=== PATIENT | female | born 1930 | race Caucasian/White ===

== ENCOUNTER 2018-04-13 08:51 | Inpatient (IN) ==
[2018-04-13] MEDS ORDERED: SODIUM CHLORIDE 0.9% 500 ML IV STA (09:22)
[2018-04-13 09:33] LABS: Basophils % 0.2 % (0.0-0.8); Eosinophils # 0.3 10*3/uL (0.0-0.87); Hematocrit 43.9 VOL% (35.7-47.0); Hemoglobin 13.4 GM/DL (12.0-16.0); Immature Granulocytes % 0.2 %; Immature Granulocytes Absolute 0.02 #; Lymphocytes # 2.1 10*3/uL (1.4-4.0); Lymphocytes % 24.3 % (21.3-54.2); Mean Corpuscular HGB Conc 30.5 GM/DL (32-36); Mean Corpuscular Hemoglobin 29 PG (27-34); Monocytes # 0.7 10*3/uL (0.11-0.8); Monocytes % 8.1 % (1.7-12.7); Neutrophils # 5.4 10*3/uL (1.4-7.4); Neutrophils % 63.2 % (38.7-73.9); Platelet Count 172 T/CUMM (130-400); Red Blood Count 4.62 MC/CUMM (3.8-5.5); Red Cell Distribution Width 13.9 % (9.3-17.3); White Blood Count 8.6 T/CUMM (4-12)
[2018-04-13 09:41] LABS: INR 0.9; Partial Thromboplastin Time 27.3 SECS (0-40)
[2018-04-13 10:27] LABS: Alanine Aminotransferase < 9 U/L (13-56); Albumin 2.6 G/DL (3.4-5.0); Alkaline Phosphatase 82 U/L (45-117); Aspartate Amino Transferase 14 U/L (0-37); Bilirubin,Total < 0.39 MG/DL (0.2-1.0); Blood Urea Nitrogen 31 MG/DL (7-18); Calcium 8.7 MG/DL (8.5-10.1); Glucose 84 MG/DL (74-106); Osmolality,Calculated 286.3 MOS/KG (273-304); Potassium 4.6 MMOL/L (3.5-5.1); Sodium 141 MMOL/L (136-145); Total Protein 6.5 G/DL (6.4-8.3); Troponin I 0.017 NG/ML (0.00-0.045)
[2018-04-13] MEDS ORDERED: LEVOFLOXACIN INJ 750 MG in PREMIX 1 EACH IV STA (10:40)
[2018-04-13] MEDS ORDERED: ALBUTEROL/IPRATROPIUM 3 ML NEB RESP TX STA (10:40)
[2018-04-13 10:41] LABS: Apearance,Urine CLEAR (Clear); Bacteria,Urine Occasional /HPF (Few); Bilirubin,Urine Negative (Negative); Blood, Urine Negative (Negative); Glucose,Urine (UA) Negative (Negative); Ketones,Urine 5 mg/dL (Negative); Mucus,Urine Occasional /LPF (Occasional); Nitrite,Urine Positive (Negative); Protein,Urine Negative; RBC,Urine 2 /HPF (0-4); Urine Color Yellow (Yellow); Urine Specific Gravity 1.023 (1.001-1.035); WBC,Urine 44 /HPF (0-6)
[2018-04-13] MEDS ORDERED: ONDANSETRON 4 MG/2 ML VIAL IV PRN (10:55)
[2018-04-13] MEDS ORDERED: MEPERIDINE 25 MG/1 ML VIAL IV STA (12:28)
[2018-04-13] MEDS ORDERED: MEPERIDINE 25 MG/1 ML VIAL ONE (12:29)
[2018-04-13] MEDS: ALBUTEROL/IPRATROPIUM 3 ML NEB RESP TX SCH ×2 (13:52→20:38)
[2018-04-13] MEDS ORDERED: MENTHOL TOP PRN (13:59)
[2018-04-13] MEDS: DEXTROSE 5% NACL 0.9% 1,000 ML IV SCH (14:08)
[2018-04-13] MEDS ORDERED: CARBIDOPA/LEVODOPA 25-100 MG TABLET PO SCH (15:00)
[2018-04-13] MEDS: CARBIDOPA/LEVODOPA 25-100 MG TABLET PO SCH ×3 (15:38→22:13)
[2018-04-13] MEDS: GABAPENTIN 100 MG CAPSULE PO SCH ×3 (15:38→22:13)
[2018-04-13] MEDS ORDERED: DULoxetine 30 MG CAPSULE PO SCH (21:00)
[2018-04-13] MEDS ORDERED: SIMVASTATIN 20 MG TABLET PO SCH (21:00)
[2018-04-13] MEDS: SIMVASTATIN 20 MG TABLET PO SCH (22:11)
[2018-04-13] MEDS: MEGESTROL 400 MG/10 ML UDCUP PO SCH (22:11)
[2018-04-13] MEDS: DULoxetine 30 MG CAPSULE PO SCH (22:12)
[2018-04-13] MEDS: DIVALPROEX 250 MG TABLET PO SCH (22:12)
[2018-04-13] MEDS: LACOSAMIDE 50 MG TABLET PO SCH (22:12)
[2018-04-13] MEDS: METOPROLOL TARTRATE 25 MG TABLET PO SCH (22:12)
[2018-04-13] MEDS: clonazePAM 0.5 MG TABLET PO SCH (22:13)
[2018-04-13] MEDS: DONEPEZIL 10 MG TABLET PO SCH (22:13)
[2018-04-13] MEDS: LATANOPROST 0.005% OPH SOLN 2.5 ML BOTTLE BOTH EYES SCH (22:14)
[2018-04-13] MEDS: FAMOTIDINE 20 MG TABLET PO SCH (22:14)
[2018-04-13] MEDS: DOCUSATE SODIUM 100 MG CAPSULE PO SCH (22:14)
[2018-04-14] MEDS: ALBUTEROL/IPRATROPIUM 3 ML NEB RESP TX SCH ×4 (00:45→20:44)
[2018-04-14] MEDS: DEXTROSE 5% NACL 0.9% 1,000 ML IV SCH ×2 (03:47→16:27)
[2018-04-14 04:47] LABS: Basophils % 0.2 % (0.0-0.8); Eosinophils # 0.3 10*3/uL (0.0-0.87); Eosinophils % 4.2 % (0.00-10.9); Hematocrit 33.2 VOL% (35.7-47.0); Hemoglobin 10.2 GM/DL (12.0-16.0); Immature Granulocytes % 0.2 %; Immature Granulocytes Absolute 0.01 #; Lymphocytes # 1.7 10*3/uL (1.4-4.0); Lymphocytes % 27.1 % (21.3-54.2); Mean Corpuscular HGB Conc 30.7 GM/DL (32-36); Mean Corpuscular Hemoglobin 29 PG (27-34); Mean Corpuscular Volume 93.5 FL (87-102); Mean Platelet Volume 11.5 FL (9.6-12.0); Monocytes # 0.6 10*3/uL (0.11-0.8); Monocytes % 10.1 % (1.7-12.7); Neutrophils # 3.6 10*3/uL (1.4-7.4); Neutrophils % 58.2 % (38.7-73.9); Platelet Count 153 T/CUMM (130-400); Red Blood Count 3.55 MC/CUMM (3.8-5.5); Red Cell Distribution Width 13.6 % (9.3-17.3); White Blood Count 6.1 T/CUMM (4-12)
[2018-04-14 05:28] LABS: Alanine Aminotransferase < 9 U/L (13-56); Albumin 2.3 G/DL (3.4-5.0); Alkaline Phosphatase 69 U/L (45-117); Aspartate Amino Transferase 11 U/L (0-37); Blood Urea Nitrogen 27 MG/DL (7-18); Calcium 8.5 MG/DL (8.5-10.1); Glucose 116 MG/DL (74-106); Osmolality,Calculated 293.7 MOS/KG (273-304); Sodium 145 MMOL/L (136-145); Total Protein 5.5 G/DL (6.4-8.3)
[2018-04-14] MEDS ORDERED: DONEPEZIL 10 MG TABLET PO SCH (08:00)
[2018-04-14] MEDS: LACTULOSE 20 GM/30 ML UDCUP PO SCH (08:54)
[2018-04-14] MEDS: DIVALPROEX 250 MG TABLET PO SCH ×2 (08:55→21:03)
[2018-04-14] MEDS: clonazePAM 0.5 MG TABLET PO SCH ×2 (08:55→21:05)
[2018-04-14] MEDS: POTASSIUM CHLORIDE 20 MEQ/15 ML UDCUP PO SCH (08:55)
[2018-04-14] MEDS: MEGESTROL 400 MG/10 ML UDCUP PO SCH ×2 (08:55→21:05)
[2018-04-14] MEDS: POLYETHYLENE GLYCOL POWDER 17 GM PACK PO SCH (08:55)
[2018-04-14] MEDS: CALCIUM (CARBONATE)/VITAMIN D 600 MG-400 UNIT TABLET PO SCH (08:56)
[2018-04-14] MEDS: LACOSAMIDE 50 MG TABLET PO SCH ×2 (08:56→21:16)
[2018-04-14] MEDS: ASPIRIN EC 81 MG TABLET PO SCH (08:57)
[2018-04-14] MEDS: DOCUSATE SODIUM 100 MG CAPSULE PO SCH ×2 (08:57→21:11)
[2018-04-14] MEDS: METOPROLOL TARTRATE 25 MG TABLET PO SCH ×2 (08:57→21:16)
[2018-04-14] MEDS: GABAPENTIN 100 MG CAPSULE PO SCH ×3 (08:58→21:05)
[2018-04-14] MEDS: BACLOFEN 10 MG TABLET PO SCH (08:58)
[2018-04-14] MEDS: DULoxetine 30 MG CAPSULE PO SCH ×2 (08:58→21:03)
[2018-04-14] MEDS: CARBIDOPA/LEVODOPA 25-100 MG TABLET PO SCH ×3 (08:59→21:04)
[2018-04-14] MEDS: FAMOTIDINE 20 MG TABLET PO SCH ×2 (08:59→21:05)
[2018-04-14] MEDS: MEMANTINE 10 MG TABLET PO SCH ×2 (08:59→21:44)
[2018-04-14] MEDS ORDERED: PANTOPRAZOLE 40 MG TABLET PO SCH (09:00)
[2018-04-14] MEDS: LEVOFLOXACIN INJ 750 MG in PREMIX 1 EACH IV SCH (10:24)
[2018-04-14] MEDS ORDERED: CYANOCOBALAMIN 1000 MCG/1 ML VIAL IM ONE (15:34)
[2018-04-14] MEDS: DONEPEZIL 10 MG TABLET PO SCH (21:03)
[2018-04-14] MEDS: SIMVASTATIN 20 MG TABLET PO SCH (21:03)
[2018-04-14] MEDS: BISACODYL 10 MG SUPP RECTAL SCH (21:05)
[2018-04-14] MEDS: LATANOPROST 0.005% OPH SOLN 2.5 ML BOTTLE BOTH EYES SCH (21:14)
[2018-04-15] MEDS: ALBUTEROL/IPRATROPIUM 3 ML NEB RESP TX SCH ×4 (01:24→20:24)
[2018-04-15 05:50] LABS: Basophils % 0.2 % (0.0-0.8); Eosinophils # 0.4 10*3/uL (0.0-0.87); Eosinophils % 4.8 % (0.00-10.9); Hematocrit 31.6 VOL% (35.7-47.0); Hemoglobin 9.5 GM/DL (12.0-16.0); Immature Granulocytes % 0.4 %; Immature Granulocytes Absolute 0.03 #; Lymphocytes # 1.7 10*3/uL (1.4-4.0); Lymphocytes % 20.4 % (21.3-54.2); Mean Corpuscular HGB Conc 30.1 GM/DL (32-36); Mean Corpuscular Hemoglobin 29 PG (27-34); Mean Corpuscular Volume 95.8 FL (87-102); Mean Platelet Volume 11.2 FL (9.6-12.0); Monocytes # 0.8 10*3/uL (0.11-0.8); Monocytes % 9.8 % (1.7-12.7); Neutrophils # 5.3 10*3/uL (1.4-7.4); Neutrophils % 64.4 % (38.7-73.9); Platelet Count 132 T/CUMM (130-400); Red Cell Distribution Width 13.7 % (9.3-17.3); White Blood Count 8.2 T/CUMM (4-12)
[2018-04-15 06:06] LABS: Calcium 8.3 MG/DL (8.5-10.1)
[2018-04-15] MEDS: DEXTROSE 5% NACL 0.9% 1,000 ML IV SCH ×2 (06:18→20:46)
[2018-04-15] MEDS: POTASSIUM CHLORIDE 20 MEQ/15 ML UDCUP PO SCH (10:14)
[2018-04-15] MEDS: LACTULOSE 20 GM/30 ML UDCUP PO SCH (10:14)
[2018-04-15] MEDS: POLYETHYLENE GLYCOL POWDER 17 GM PACK PO SCH (10:15)
[2018-04-15] MEDS: MEGESTROL 400 MG/10 ML UDCUP PO SCH ×2 (10:16→20:47)
[2018-04-15] MEDS: CALCIUM (CARBONATE)/VITAMIN D 600 MG-400 UNIT TABLET PO SCH (10:16)
[2018-04-15] MEDS: ASPIRIN EC 81 MG TABLET PO SCH (10:16)
[2018-04-15] MEDS: CARBIDOPA/LEVODOPA 25-100 MG TABLET PO SCH ×3 (10:17→20:48)
[2018-04-15] MEDS: clonazePAM 0.5 MG TABLET PO SCH ×2 (10:17→20:47)
[2018-04-15] MEDS: METOPROLOL TARTRATE 25 MG TABLET PO SCH ×2 (10:18→20:49)
[2018-04-15] MEDS: DOCUSATE SODIUM 100 MG CAPSULE PO SCH ×2 (10:18→20:50)
[2018-04-15] MEDS: FAMOTIDINE 20 MG TABLET PO SCH ×2 (10:18→20:50)
[2018-04-15] MEDS: GABAPENTIN 100 MG CAPSULE PO SCH ×3 (10:18→20:47)
[2018-04-15] MEDS: DULoxetine 30 MG CAPSULE PO SCH ×2 (10:19→20:49)
[2018-04-15] MEDS: LACOSAMIDE 50 MG TABLET PO SCH ×2 (10:19→20:49)
[2018-04-15] MEDS: MEMANTINE 10 MG TABLET PO SCH ×2 (10:19→20:50)
[2018-04-15] MEDS: BACLOFEN 10 MG TABLET PO SCH (10:19)
[2018-04-15] MEDS: DIVALPROEX 250 MG TABLET PO SCH ×2 (10:19→20:47)
[2018-04-15] MEDS: LEVOFLOXACIN INJ 750 MG in PREMIX 1 EACH IV SCH (10:21)
[2018-04-15] MEDS: MEROPENEM 500 MG in SYRINGE 1 EACH IV SCH ×2 (13:53→22:10)
[2018-04-15] MEDS: DONEPEZIL 10 MG TABLET PO SCH (20:48)
[2018-04-15] MEDS: SIMVASTATIN 20 MG TABLET PO SCH (20:49)
[2018-04-16] MEDS: ALBUTEROL/IPRATROPIUM 3 ML NEB RESP TX SCH ×4 (02:07→19:52)
[2018-04-16] MEDS: LATANOPROST 0.005% OPH SOLN 2.5 ML BOTTLE BOTH EYES SCH ×2 (02:26→20:19)
[2018-04-16 04:29] LABS: Basophils % 0.3 % (0.0-0.8); Eosinophils # 0.3 10*3/uL (0.0-0.87); Eosinophils % 4.2 % (0.00-10.9); Hematocrit 31.8 VOL% (35.7-47.0); Hemoglobin 9.7 GM/DL (12.0-16.0); Immature Granulocytes % 0.1 %; Immature Granulocytes Absolute 0.01 #; Lymphocytes # 1.3 10*3/uL (1.4-4.0); Lymphocytes % 17.3 % (21.3-54.2); Mean Corpuscular HGB Conc 30.5 GM/DL (32-36); Mean Corpuscular Hemoglobin 28 PG (27-34); Mean Corpuscular Volume 93.3 FL (87-102); Monocytes # 0.8 10*3/uL (0.11-0.8); Monocytes % 10.5 % (1.7-12.7); Neutrophils # 5.1 10*3/uL (1.4-7.4); Neutrophils % 67.6 % (38.7-73.9); Platelet Count 143 T/CUMM (130-400); Red Blood Count 3.41 MC/CUMM (3.8-5.5); Red Cell Distribution Width 13.9 % (9.3-17.3); White Blood Count 7.6 T/CUMM (4-12)
[2018-04-16 05:00] LABS: Calcium 8.2 MG/DL (8.5-10.1); Osmolality,Calculated 291.8 MOS/KG (273-304); Potassium 4.2 MMOL/L (3.5-5.1)
[2018-04-16] MEDS: MEROPENEM 500 MG in SYRINGE 1 EACH IV SCH ×3 (06:21→22:00)
[2018-04-16] MEDS: MEGESTROL 400 MG/10 ML UDCUP PO SCH ×2 (09:45→20:15)
[2018-04-16] MEDS: LACTULOSE 20 GM/30 ML UDCUP PO SCH (09:45)
[2018-04-16] MEDS: METOPROLOL TARTRATE 25 MG TABLET PO SCH ×2 (09:45→20:18)
[2018-04-16] MEDS: POTASSIUM CHLORIDE 20 MEQ/15 ML UDCUP PO SCH (09:45)
[2018-04-16] MEDS: POLYETHYLENE GLYCOL POWDER 17 GM PACK PO SCH (09:45)
[2018-04-16] MEDS: FAMOTIDINE 20 MG TABLET PO SCH ×2 (09:45→20:19)
[2018-04-16] MEDS: BACLOFEN 10 MG TABLET PO SCH (09:46)
[2018-04-16] MEDS: CALCIUM (CARBONATE)/VITAMIN D 600 MG-400 UNIT TABLET PO SCH (09:46)
[2018-04-16] MEDS: ASPIRIN EC 81 MG TABLET PO SCH (09:46)
[2018-04-16] MEDS: CARBIDOPA/LEVODOPA 25-100 MG TABLET PO SCH ×3 (09:46→20:16)
[2018-04-16] MEDS: GABAPENTIN 100 MG CAPSULE PO SCH ×3 (09:46→20:18)
[2018-04-16] MEDS: LACOSAMIDE 50 MG TABLET PO SCH ×2 (09:46→20:19)
[2018-04-16] MEDS: DIVALPROEX 250 MG TABLET PO SCH ×2 (09:46→20:16)
[2018-04-16] MEDS: DULoxetine 30 MG CAPSULE PO SCH ×2 (09:46→20:16)
[2018-04-16] MEDS: DOCUSATE SODIUM 100 MG CAPSULE PO SCH ×2 (09:47→20:16)
[2018-04-16] MEDS: MEMANTINE 10 MG TABLET PO SCH ×2 (09:47→20:18)
[2018-04-16] MEDS: clonazePAM 0.5 MG TABLET PO SCH ×2 (09:47→20:19)
[2018-04-16] MEDS: DEXTROSE 5% NACL 0.9% 1,000 ML IV SCH (09:54)
[2018-04-16] MEDS: BISACODYL 10 MG SUPP RECTAL SCH (20:15)
[2018-04-16] MEDS: DONEPEZIL 10 MG TABLET PO SCH (20:16)
[2018-04-16] MEDS: SIMVASTATIN 20 MG TABLET PO SCH (20:19)
[2018-04-17] MEDS: DEXTROSE 5% NACL 0.9% 1,000 ML IV SCH ×2 (00:46→14:17)
[2018-04-17] MEDS ORDERED: CYANOCOBALAMIN 1000 MCG/1 ML VIAL IM ONE (00:47)
[2018-04-17] MEDS: ALBUTEROL/IPRATROPIUM 3 ML NEB RESP TX SCH ×4 (01:25→19:15)
[2018-04-17 05:57] LABS: Basophils % 0.3 % (0.0-0.8); Eosinophils # 0.4 10*3/uL (0.0-0.87); Eosinophils % 5.2 % (0.00-10.9); Hematocrit 32.8 VOL% (35.7-47.0); Hemoglobin 9.8 GM/DL (12.0-16.0); Immature Granulocytes % 0.3 %; Immature Granulocytes Absolute 0.02 #; Lymphocytes # 2.1 10*3/uL (1.4-4.0); Lymphocytes % 28.6 % (21.3-54.2); Mean Corpuscular HGB Conc 29.9 GM/DL (32-36); Mean Corpuscular Hemoglobin 29 PG (27-34); Mean Corpuscular Volume 95.6 FL (87-102); Mean Platelet Volume 11.4 FL (9.6-12.0); Monocytes # 0.8 10*3/uL (0.11-0.8); Monocytes % 10.6 % (1.7-12.7); Neutrophils # 4.1 10*3/uL (1.4-7.4); Platelet Count 135 T/CUMM (130-400); Red Blood Count 3.43 MC/CUMM (3.8-5.5); Red Cell Distribution Width 14.1 % (9.3-17.3); White Blood Count 7.5 T/CUMM (4-12)
[2018-04-17 06:14] LABS: Calcium 8.3 MG/DL (8.5-10.1); Osmolality,Calculated 289.7 MOS/KG (273-304); Potassium 3.9 MMOL/L (3.5-5.1)
[2018-04-17] MEDS: MEROPENEM 500 MG in SYRINGE 1 EACH IV SCH ×3 (06:43→21:13)
[2018-04-17] MEDS: GABAPENTIN 100 MG CAPSULE PO SCH ×4 (11:24→21:20)
[2018-04-17] MEDS: CARBIDOPA/LEVODOPA 25-100 MG TABLET PO SCH ×4 (11:24→21:19)
[2018-04-17] MEDS: DIVALPROEX 250 MG TABLET PO SCH ×3 (11:24→21:19)
[2018-04-17] MEDS: FAMOTIDINE 20 MG TABLET PO SCH ×3 (11:24→21:18)
[2018-04-17] MEDS: CALCIUM (CARBONATE)/VITAMIN D 600 MG-400 UNIT TABLET PO SCH ×2 (11:25→13:17)
[2018-04-17] MEDS: DOCUSATE SODIUM 100 MG CAPSULE PO SCH ×3 (11:25→21:19)
[2018-04-17] MEDS: LACOSAMIDE 50 MG TABLET PO SCH ×3 (11:25→21:19)
[2018-04-17] MEDS: MEMANTINE 10 MG TABLET PO SCH ×3 (11:25→21:19)
[2018-04-17] MEDS: DULoxetine 30 MG CAPSULE PO SCH ×3 (11:25→21:18)
[2018-04-17] MEDS: ASPIRIN EC 81 MG TABLET PO SCH ×2 (11:25→13:17)
[2018-04-17] MEDS: BACLOFEN 10 MG TABLET PO SCH ×2 (11:25→13:18)
[2018-04-17] MEDS: LACTULOSE 20 GM/30 ML UDCUP PO SCH ×2 (11:25→13:17)
[2018-04-17] MEDS: MEGESTROL 400 MG/10 ML UDCUP PO SCH ×2 (11:26→13:18)
[2018-04-17] MEDS: POTASSIUM CHLORIDE 20 MEQ/15 ML UDCUP PO SCH ×2 (11:26→13:18)
[2018-04-17] MEDS: POLYETHYLENE GLYCOL POWDER 17 GM PACK PO SCH ×2 (11:26→13:18)
[2018-04-17] MEDS: METOPROLOL TARTRATE 25 MG TABLET PO SCH ×2 (13:14→21:19)
[2018-04-17] MEDS: clonazePAM 0.5 MG TABLET PO SCH ×2 (13:14→21:27)
[2018-04-17] MEDS: DONEPEZIL 10 MG TABLET PO SCH (21:19)
[2018-04-17] MEDS: SIMVASTATIN 20 MG TABLET PO SCH (21:20)
[2018-04-17] MEDS: LATANOPROST 0.005% OPH SOLN 2.5 ML BOTTLE BOTH EYES SCH (21:29)
[2018-04-18] MEDS: ALBUTEROL/IPRATROPIUM 3 ML NEB RESP TX SCH ×4 (01:55→19:51)
[2018-04-18] MEDS: DEXTROSE 5% NACL 0.9% 1,000 ML IV SCH ×2 (04:31→15:45)
[2018-04-18] MEDS: MEGESTROL 400 MG/10 ML UDCUP PO SCH ×3 (04:32→20:57)
[2018-04-18] MEDS: MEROPENEM 500 MG in SYRINGE 1 EACH IV SCH ×3 (10:46→22:38)
[2018-04-18] MEDS: FAMOTIDINE 20 MG TABLET PO SCH ×2 (11:14→20:59)
[2018-04-18] MEDS: ASPIRIN EC 81 MG TABLET PO SCH (11:14)
[2018-04-18] MEDS: METOPROLOL TARTRATE 25 MG TABLET PO SCH ×2 (11:14→21:18)
[2018-04-18] MEDS: MEMANTINE 10 MG TABLET PO SCH ×2 (11:14→20:59)
[2018-04-18] MEDS: BACLOFEN 10 MG TABLET PO SCH (11:14)
[2018-04-18] MEDS: DULoxetine 30 MG CAPSULE PO SCH ×2 (11:14→20:59)
[2018-04-18] MEDS: CARBIDOPA/LEVODOPA 25-100 MG TABLET PO SCH ×3 (11:14→20:58)
[2018-04-18] MEDS: GABAPENTIN 100 MG CAPSULE PO SCH ×3 (11:15→20:59)
[2018-04-18] MEDS: LACOSAMIDE 50 MG TABLET PO SCH ×2 (11:22→20:59)
[2018-04-18] MEDS: DIVALPROEX 250 MG TABLET PO SCH ×2 (11:22→20:59)
[2018-04-18] MEDS: DOCUSATE SODIUM 100 MG CAPSULE PO SCH ×2 (11:48→20:58)
[2018-04-18] MEDS: CALCIUM (CARBONATE)/VITAMIN D 600 MG-400 UNIT TABLET PO SCH (11:48)
[2018-04-18] MEDS: POTASSIUM CHLORIDE 20 MEQ/15 ML UDCUP PO SCH (11:49)
[2018-04-18] MEDS: POLYETHYLENE GLYCOL POWDER 17 GM PACK PO SCH (11:49)
[2018-04-18] MEDS: clonazePAM 0.5 MG TABLET PO SCH ×3 (11:49→20:57)
[2018-04-18] MEDS: LACTULOSE 20 GM/30 ML UDCUP PO SCH (11:51)
[2018-04-18] MEDS: DONEPEZIL 10 MG TABLET PO SCH (20:57)
[2018-04-18] MEDS: SIMVASTATIN 20 MG TABLET PO SCH (20:59)
[2018-04-18] MEDS: LATANOPROST 0.005% OPH SOLN 2.5 ML BOTTLE BOTH EYES SCH (21:18)
[2018-04-19] MEDS: ALBUTEROL/IPRATROPIUM 3 ML NEB RESP TX SCH ×4 (00:13→19:34)
[2018-04-19] MEDS: MEROPENEM 500 MG in SYRINGE 1 EACH IV SCH ×3 (05:21→22:36)
[2018-04-19] MEDS: DEXTROSE 5% NACL 0.9% 1,000 ML IV SCH ×2 (05:27→18:04)
[2018-04-19] MEDS: POTASSIUM CHLORIDE 20 MEQ/15 ML UDCUP PO SCH (08:50)
[2018-04-19] MEDS: DULoxetine 30 MG CAPSULE PO SCH ×2 (08:50→20:41)
[2018-04-19] MEDS: BACLOFEN 10 MG TABLET PO SCH (08:50)
[2018-04-19] MEDS: DIVALPROEX 250 MG TABLET PO SCH ×2 (08:51→20:41)
[2018-04-19] MEDS: METOPROLOL TARTRATE 25 MG TABLET PO SCH ×2 (08:51→20:45)
[2018-04-19] MEDS: ASPIRIN EC 81 MG TABLET PO SCH (08:51)
[2018-04-19] MEDS: DOCUSATE SODIUM 100 MG CAPSULE PO SCH ×2 (08:51→20:41)
[2018-04-19] MEDS: CARBIDOPA/LEVODOPA 25-100 MG TABLET PO SCH ×3 (08:51→20:42)
[2018-04-19] MEDS: MEMANTINE 10 MG TABLET PO SCH ×2 (08:51→20:42)
[2018-04-19] MEDS: clonazePAM 0.5 MG TABLET PO SCH ×2 (08:51→20:41)
[2018-04-19] MEDS: CALCIUM (CARBONATE)/VITAMIN D 600 MG-400 UNIT TABLET PO SCH (08:51)
[2018-04-19] MEDS: GABAPENTIN 100 MG CAPSULE PO SCH ×3 (08:51→20:41)
[2018-04-19] MEDS: LACOSAMIDE 50 MG TABLET PO SCH ×2 (08:51→20:40)
[2018-04-19] MEDS: FAMOTIDINE 20 MG TABLET PO SCH ×2 (08:51→20:41)
[2018-04-19] MEDS: MEGESTROL 400 MG/10 ML UDCUP PO SCH ×2 (08:52→20:40)
[2018-04-19] MEDS: POLYETHYLENE GLYCOL POWDER 17 GM PACK PO SCH (08:52)
[2018-04-19] MEDS: LACTULOSE 20 GM/30 ML UDCUP PO SCH (08:53)
[2018-04-19] MEDS ORDERED: FUROSEMIDE 40 MG/4 ML VIAL IV ONE (11:29)
[2018-04-19] MEDS: methylPREDNISolone SOD SUC 40 MG/1 ML VIAL IV SCH ×2 (11:58→22:35)
[2018-04-19] MEDS: BISACODYL 10 MG SUPP RECTAL SCH (20:41)
[2018-04-19] MEDS: DONEPEZIL 10 MG TABLET PO SCH (20:41)
[2018-04-19] MEDS: SIMVASTATIN 20 MG TABLET PO SCH (20:42)
[2018-04-19] MEDS: LATANOPROST 0.005% OPH SOLN 2.5 ML BOTTLE BOTH EYES SCH (20:45)
[2018-04-20] MEDS: ALBUTEROL/IPRATROPIUM 3 ML NEB RESP TX SCH ×3 (02:09→13:47)
[2018-04-20] MEDS: MEROPENEM 500 MG in SYRINGE 1 EACH IV SCH (05:38)
[2018-04-20] MEDS: METOPROLOL TARTRATE 25 MG TABLET PO SCH (09:00)
[2018-04-20] MEDS: POLYETHYLENE GLYCOL POWDER 17 GM PACK PO SCH (09:00)
[2018-04-20] MEDS: DEXTROSE 5% NACL 0.9% 1,000 ML IV SCH (09:00)
[2018-04-20] MEDS: LACTULOSE 20 GM/30 ML UDCUP PO SCH (09:01)
[2018-04-20] MEDS: DIVALPROEX 250 MG TABLET PO SCH (09:01)
[2018-04-20] MEDS: ASPIRIN EC 81 MG TABLET PO SCH (09:01)
[2018-04-20] MEDS: DOCUSATE SODIUM 100 MG CAPSULE PO SCH (09:01)
[2018-04-20] MEDS: DULoxetine 30 MG CAPSULE PO SCH (09:01)
[2018-04-20] MEDS: POTASSIUM CHLORIDE 20 MEQ/15 ML UDCUP PO SCH (09:01)
[2018-04-20] MEDS: CALCIUM (CARBONATE)/VITAMIN D 600 MG-400 UNIT TABLET PO SCH (09:01)
[2018-04-20] MEDS: CARBIDOPA/LEVODOPA 25-100 MG TABLET PO SCH ×2 (09:02→14:28)
[2018-04-20] MEDS: MEGESTROL 400 MG/10 ML UDCUP PO SCH (09:02)
[2018-04-20] MEDS: clonazePAM 0.5 MG TABLET PO SCH (09:02)
[2018-04-20] MEDS: FAMOTIDINE 20 MG TABLET PO SCH (09:02)
[2018-04-20] MEDS: GABAPENTIN 100 MG CAPSULE PO SCH ×2 (09:03→14:29)
[2018-04-20] MEDS: LACOSAMIDE 50 MG TABLET PO SCH (09:03)
[2018-04-20] MEDS: MEMANTINE 10 MG TABLET PO SCH (09:03)
[2018-04-20] MEDS: BACLOFEN 10 MG TABLET PO SCH (09:03)
[2018-04-20] MEDS: methylPREDNISolone SOD SUC 40 MG/1 ML VIAL IV SCH (10:55)
[2018-04-20 15:36] VITALS: BP 124/58
== END 2018-04-20 15:45 | DRG 690 ==
LOC: EDBD → EDUNIT# → N.ED 08:51 → N.EDINP 10:55 → N.5E 13:29
PROVIDERS: ADMIT Internal Medicine; ATTEND Internal Medicine

== ENCOUNTER 2018-12-03 07:47 | Inpatient (IN) ==
[2018-12-03] MEDS ORDERED: LEVOFLOXACIN INJ 500 MG in PREMIX 1 EACH IV STA (07:59)
[2018-12-03] MEDS ORDERED: MEROPENEM 1,000 MG in SODIUM CHLORIDE 0.9% 100 ML IV ONE (08:02)
[2018-12-03] MEDS ORDERED: SODIUM CHLORIDE 0.9% 1,000 ML IV STA (08:06)
[2018-12-03 08:42] LABS: ABG Base Excess 1.9 MMOL/L (-2.5-2.5); ABG HCO3 26.1 MMOL/L (20-26); ABG Oxygen Saturation 95.5 % (95-100); ABG PCO2 49.9 MM HG (35-48); ABG PH 7.359 (7.35-7.45); ABG PO2 81.3 MM HG (80-95); ABG TCO2 25.3 MMOL/L (23-27)
[2018-12-03 08:49] LABS: PT Patient Result 10.7 SECS (9.6-12.2); Partial Thromboplastin Time 22.2 SECS (20.8-36.0)
[2018-12-03 08:56] LABS: Bilirubin,Total 0.7 MG/DL (0.2-1.0); Calcium 10.3 MG/DL (8.5-10.1); Osmolality,Calculated 318.4 MOS/KG (273-304); Total Protein 8.4 G/DL (6.4-8.3)
[2018-12-03 09:02] LABS: Apearance,Urine CLOUDY (Clear); Bacteria,Urine Moderate /HPF (Few); Blood, Urine Small mg/dL (Negative); Glucose,Urine (UA) Negative (Negative); Hyaline Casts,Urine 24 /LPF (0-3); Ketones,Urine 5 mg/dL (Negative); Mucus,Urine Many /LPF (Occasional); Nitrite,Urine Negative (Negative); Protein,Urine >=500 MG/DL; RBC,Urine 4 /HPF (0-4); Squamous Epithelial Cell,Urine Moderate /HPF (0-10); Urine Color Amber (Yellow); Urine Specific Gravity 1.027 (1.001-1.035); WBC,Urine 35 /HPF (0-6)
[2018-12-03 09:03] LABS: Bilirubin,Urine Small mg/dL (Negative)
[2018-12-03] MEDS ORDERED: VANCOMYCIN INJ 1,000 MG in SODIUM CHLORIDE 0.9% 250 ML IV STA (09:05)
[2018-12-03 09:08] LABS: Basophils % 0.1 % (0.0-0.8); Hematocrit 45.5 VOL% (35.7-47.0); Immature Granulocytes % 0.8 %; Immature Granulocytes Absolute 0.17 #; Lymphocytes # 0.7 10*3/uL (1.4-4.0); Lymphocytes % 3.4 % (21.3-54.2); Mean Corpuscular HGB Conc 29.2 GM/DL (32-36); Mean Corpuscular Volume 94.2 FL (87-102); Mean Platelet Volume 11.7 FL (9.6-12.0); Neutrophils % 91.7 % (38.7-73.9); Platelet Count 328 T/CUMM (130-400); Red Blood Count 4.83 MC/CUMM (3.8-5.5); Red Cell Distribution Width 14.3 % (9.3-17.3); White Blood Count 20.5 T/CUMM (4-12)
[2018-12-03 09:09] LABS: Hemoglobin 13.3 GM/DL (12.0-16.0)
[2018-12-03 09:12] LABS: Band Neutrophils 1 % (0-10); Hypochromasia 1+; Lymphocytes 7 % (20-55); Microcytosis Slight; Ovalocytes Slight; Segmented Neutrophils 86 % (50-85); Total Cells Counted 100
[2018-12-03 09:14] LABS: Polychromasia Slight
[2018-12-03] MEDS ORDERED: ACETAMINOPHEN 325 MG TABLET PO PRN (09:28)
[2018-12-03] MEDS ORDERED: ONDANSETRON 4 MG/2 ML VIAL IV PRN (09:28)
[2018-12-03] MEDS: ENOXAPARIN 30 MG/0.3 ML SYRINGE SUBCUT SCH (12:28)
[2018-12-03] MEDS: SODIUM CHLORIDE 0.9% 1,000 ML IV SCH (12:29)
[2018-12-03] MEDS: VANCOMYCIN INJ 750 MG in SODIUM CHLORIDE 0.9% 250 ML IV SCH (12:57)
[2018-12-03] MEDS ORDERED: DEXTROSE 10% 25 GM/250 ML BAG IV PRN (13:10)
[2018-12-03] MEDS ORDERED: GLUCAGON 1 MG VIAL IM PRN (13:10)
[2018-12-03] MEDS ORDERED: hydrALAZINE 20 MG/1 ML VIAL IV PRN (13:11)
[2018-12-03] MEDS: MEROPENEM 500 MG in SODIUM CHLORIDE 0.9% 100 ML IV SCH ×2 (14:48→20:17)
[2018-12-03] MEDS: INSULIN LISPRO 100 UNIT/ML SUBCUT SCH (18:23)
[2018-12-04] MEDS: INSULIN LISPRO 100 UNIT/ML SUBCUT SCH ×4 (00:16→17:57)
[2018-12-04] MEDS: MEROPENEM 500 MG in SODIUM CHLORIDE 0.9% 100 ML IV SCH ×4 (03:16→21:42)
[2018-12-04] MEDS: SODIUM CHLORIDE 0.9% 1,000 ML IV SCH ×2 (03:16→13:23)
[2018-12-04] MEDS ORDERED: traMADol 50 MG TABLET PO PRN (05:04)
[2018-12-04 06:28] LABS: Basophils % 0.2 % (0.0-0.8); Hematocrit 35.2 VOL% (35.7-47.0); Hemoglobin 10.5 GM/DL (12.0-16.0); Immature Granulocytes % 1.6 %; Immature Granulocytes Absolute 0.36 #; Lymphocytes # 0.7 10*3/uL (1.4-4.0); Mean Corpuscular HGB Conc 29.8 GM/DL (32-36); Mean Corpuscular Volume 96.2 FL (87-102); Mean Platelet Volume 11.8 FL (9.6-12.0); NRBC # 0.04 10*3/uL; Neutrophils % 89.2 % (38.7-73.9); Platelet Count 226 T/CUMM (130-400); Red Blood Count 3.66 MC/CUMM (3.8-5.5); Red Cell Distribution Width 14.4 % (9.3-17.3); White Blood Count 22.2 T/CUMM (4-12)
[2018-12-04 06:34] LABS: Calcium 9.8 MG/DL (8.5-10.1); Osmolality,Calculated 331.5 MOS/KG (273-304)
[2018-12-04 06:47] LABS: Band Neutrophils 2 % (0-10); Lymphocytes 3 % (20-55); Segmented Neutrophils 93 % (50-85); Total Cells Counted 100
[2018-12-04 06:48] LABS: Anisocytosis 1+; Ovalocytes 1+; Platelet Estimate Normal
[2018-12-04] MEDS: ENOXAPARIN 30 MG/0.3 ML SYRINGE SUBCUT SCH (10:00)
[2018-12-04] MEDS ORDERED: ACETAMINOPHEN 325 MG SUPP RECTAL PRN (11:27)
[2018-12-04] MEDS: VANCOMYCIN INJ 750 MG in SODIUM CHLORIDE 0.9% 250 ML IV SCH (12:59)
[2018-12-04] MEDS: SODIUM CHLORIDE 0.45% 1,000 ML IV SCH (13:22)
[2018-12-04] MEDS ORDERED: ALBUTEROL/IPRATROPIUM 3 ML NEB RESP TX PRN (13:41)
[2018-12-05] MEDS: INSULIN LISPRO 100 UNIT/ML SUBCUT SCH ×4 (00:27→17:48)
[2018-12-05] MEDS: MEROPENEM 500 MG in SODIUM CHLORIDE 0.9% 100 ML IV SCH ×4 (03:13→21:09)
[2018-12-05] MEDS: SODIUM CHLORIDE 0.45% 1,000 ML IV SCH ×2 (03:14→23:09)
[2018-12-05] MEDS: ENOXAPARIN 30 MG/0.3 ML SYRINGE SUBCUT SCH (09:33)
[2018-12-05] MEDS: KETOROLAC 15 MG/1 ML VIAL IV PRN (12:32)
[2018-12-05] MEDS: VANCOMYCIN INJ 750 MG in SODIUM CHLORIDE 0.9% 250 ML IV SCH (12:34)
[2018-12-05] MEDS: MORPHINE 4 MG/1 ML VIAL IV PRN (19:53)
[2018-12-06] MEDS: KETOROLAC 15 MG/1 ML VIAL IV PRN (00:35)
[2018-12-06] MEDS: INSULIN LISPRO 100 UNIT/ML SUBCUT SCH ×3 (00:40→11:38)
[2018-12-06] MEDS: MEROPENEM 500 MG in SODIUM CHLORIDE 0.9% 100 ML IV SCH ×4 (03:16→20:21)
[2018-12-06] MEDS: MORPHINE 4 MG/1 ML VIAL IV PRN (04:07)
[2018-12-06] MEDS: ENOXAPARIN 30 MG/0.3 ML SYRINGE SUBCUT SCH (08:42)
[2018-12-06] MEDS: VANCOMYCIN INJ 750 MG in SODIUM CHLORIDE 0.9% 250 ML IV SCH (14:16)
[2018-12-06] MEDS ORDERED: LORazepam 2 MG/1 ML VIAL IV PRN (14:40)
[2018-12-06] MEDS: SODIUM CHLORIDE 0.45% 1,000 ML IV SCH (20:23)
[2018-12-07] MEDS: MORPHINE 4 MG/1 ML VIAL IV PRN ×4 (01:39→13:47)
[2018-12-07 01:52] VITALS: BP 143/61
[2018-12-07] MEDS: MEROPENEM 500 MG in SODIUM CHLORIDE 0.9% 100 ML IV SCH ×3 (03:36→12:09)
[2018-12-07] MEDS ORDERED: MEROPENEM 500 MG in SODIUM CHLORIDE 0.9% 100 ML IV ONE (11:58)
== END 2018-12-07 15:20 | disposition hospice, home (50) | DRG 177 ==
LOC: EDBD → EDUNIT# → N.ED 07:47 → N.EDINP 09:28 → N.2E 11:07
PROVIDERS: ADMIT Internal Medicine; ATTEND Internal Medicine